=== PATIENT | female | born 1955 | race Caucasian/White ===

== ENCOUNTER 2016-10-06 22:05 | Emergency (ER) | payer BC ==
[~2016-10-06] VITALS: Ht 162.6 cm; Wt 56.2 kg
[2016-10-06 22:39] LABS: BILIRUBIN,URINE NEGATIVE (NEG); GLUCOSE,URINE NEGATIVE (NEG); NITRITE,URINE NEGATIVE (NEG); PROTEIN,URINE 30 mg/dL (NEG-TRACE); UROBILINOGEN,URINE 0.2 mg/dL (0.2 mg/dL)
[2016-10-06] MEDS ORDERED: IV NORMAL SALINE 1000ML BAG 1,000 ML IV ONE (22:45)
[2016-10-06] MEDS ORDERED: fentaNYL PF VIAL 100 MCG/2 ML VIAL IV ONE (22:45)
[2016-10-06] MEDS ORDERED: KETOROLAC TROMETHAMINE 30 MG/ML INJ. IV ONE (22:45)
[2016-10-06] MEDS ORDERED: ONDANSETRON PF 4 MG/2 ML VIAL. IV ONE (22:45)
[2016-10-06 22:48] LABS: BACTERIA,URINE FEW /HPF (0-FEW); SQUAMOUS EPITHELIAL CELL,UR MOD /LPF
--- NOTE | 2016-10-06 22:52 | PHYS DOC ---
Past Medical History Past Medical History: Hypertension Adult General Chief Complaint Chief Complaint: FLANK PAIN HPI HPI Patient is a 60 year old female with history of hypertension who presents today with moderate left flank pain with nausea and vomiting that began this evening. Patient denies any fever but she states she has chills. Patient denies any urgency frequency or dysuria. Denies any history of kidney stones. PCP Dr. Ahn Review of Systems Review of Systems Constitutional: Denies fever or chills [] Eyes: Denies change in visual acuity, redness, or eye pain [] HENT: Denies nasal congestion or sore throat [] Respiratory: Denies cough or shortness of breath [] Cardiovascular: No additional information not addressed in HPI [] GI: Denies abdominal pain, nausea, vomiting, bloody stools or diarrhea [] : Left flank pain Musculoskeletal: Denies back pain or joint pain [] Integument: Denies rash or skin lesions [] Neurologic: Denies headache, focal weakness or sensory changes [] Endocrine: Denies polyuria or polydipsia [] Current Medications Current Medications Current Medications Medications (Trade) Dose Ordered Sig/Clarisa Start Time Stop Time Status Last Admin Dose Admin Ceftriaxone Sodium 50 ml @ 100 mls/hr 1X ONCE 10/06/16 23:15 10/06/16 23:44 DC 10/06/16 23:11 100 MLS/HR Fentanyl Citrate (Fentanyl 2ml Vial) 50 mcg 1X ONCE 10/06/16 22:45 10/06/16 22:46 DC 10/06/16 22:56 50 MCG Ketorolac Tromethamine (Toradol) 30 mg 1X ONCE 10/06/16 22:45 10/06/16 22:46 DC 10/06/16 22:57 30 MG Ondansetron HCl (Zofran) 4 mg 1X ONCE 10/06/16 22:45 10/06/16 22:46 DC 10/06/16 22:56 4 MG Potassium Chloride (Klor-Con) 40 meq 1X ONCE 10/06/16 23:30 10/06/16 23:31 DC 10/06/16 23:34 40 MEQ Sodium Chloride 1,000 ml @ 1,000 mls/hr 1X ONCE 10/06/16 22:45 10/06/16 23:44 DC 10/06/16 22:57 1,000 MLS/HR Tamsulosin HCl (Flomax) 0.4 mg 1X ONCE 10/06/16 23:30 10/06/16 23:31 DC 10/06/16 23:34 0.4 MG Allergies Allergies Allergies Coded Allergies Type Severity Reaction Last Updated Verified Sulfa (Sulfonamide Antibiotics) Allergy Unknown 10/06/16 Yes codeine Allergy Unknown 10/06/16 Yes Physical Exam Physical Exam Constitutional: Well developed, well nourished, no acute distress, non-toxic appearance. [] HENT: Normocephalic, atraumatic, bilateral external ears normal, oropharynx moist, no oral exudates, nose normal. [] Eyes: PERRLA, EOMI, conjunctiva normal, no discharge. [] Neck: Normal range of motion, no tenderness, supple, no stridor. [] Cardiovascular:Heart rate regular rhythm, no murmur [] Lungs & Thorax: Bilateral breath sounds clear to auscultation [] Abdomen: Bowel sounds normal, soft, no tenderness, no masses, no pulsatile masses. [] Skin: Warm, dry, no erythema, no rash. [] Back: No tenderness, mild left CVA tenderness. [] Extremities: No tenderness, no cyanosis, no clubbing, ROM intact, no edema. [] Neurologic: Alert and oriented X 3, normal motor function, normal sensory function, no focal deficits noted. [] Psychologic: Affect normal, judgement normal, mood normal. [] Current Patient Data Vital Signs Vital Signs Date Time Temp Pulse Resp B/P (MAP) Pulse Ox O2 Delivery O2 Flow Rate FiO2 10/06/16 23:48 94 16 193/79 (117) 97 Room Air 10/06/16 22:15 97.5 97.5 Lab Values Laboratory Tests Test 10/06/16 22:15 10/06/16 22:25 Urine Collection Type Unknown Urine Color Yellow Urine Clarity Clear Urine pH 6.0 Urine Specific [place] 1.025 Urine Protein 30 mg/dL (NEG-TRACE) Urine Glucose (UA) Negative mg/dL (NEG) Urine Ketones (Stick) Negative mg/dL (NEG) Urine Blood Moderate (NEG) Urine Nitrite Negative (NEG) Urine Bilirubin Negative (NEG) Urine Urobilinogen Dipstick 0.2 mg/dL (0.2 mg/dL) Urine Leukocyte Esterase Small (NEG) Urine RBC 6-10 /HPF (0-2) Urine WBC 11-20 /HPF (0-4) Urine Squamous Epithelial Cells Mod /LPF Urine Bacteria Few /HPF (0-FEW) Urine Mucus Mod /LPF White Blood Count 15.9 x10^3/uL (4.0-11.0) H Red Blood Count 4.89 x10^6/uL (3.50-5.40) Hemoglobin 14.5 g/dL (12.0-15.5) Hematocrit 43.9 % (36.0-47.0) Mean Corpuscular Volume 90 fL (79-100) Mean Corpuscular Hemoglobin 30 pg (25-35) Mean Corpuscular Hemoglobin Concent 33 g/dL (31-37) Red Cell Distribution Width 14.2 % (11.5-14.5) Platelet Count 184 x10^3/uL (140-400) Neutrophils (%) (Auto) 76 % (31-73) H Lymphocytes (%) (Auto) 18 % (24-48) L Monocytes (%) (Auto) 5 % (0-9) Eosinophils (%) (Auto) 0 % (0-3) Basophils (%) (Auto) 0 % (0-3) Neutrophils # (Auto) 12.1 x10^3uL (1.8-7.7) H Lymphocytes # (Auto) 2.9 x10^3/uL (1.0-4.8) Monocytes # (Auto) 0.8 x10^3/uL (0.0-1.1) Eosinophils # (Auto) 0.1 x10^3/uL (0.0-0.7) Basophils # (Auto) 0.1 x10^3/uL (0.0-0.2) Sodium Level 141 mmol/L (136-145) Potassium Level 3.1 mmol/L (3.5-5.1) L Chloride Level 102 mmol/L (98-107) Carbon Dioxide Level 32 mmol/L (21-32) Anion Gap 7 (6-14) Blood Urea Nitrogen 32 mg/dL (7-20) H Creatinine 1.0 mg/dL (0.6-1.0) Estimated GFR (Cockcroft-Gault) 56.7 BUN/Creatinine Ratio 32 (6-20) H Glucose Level 141 mg/dL (70-99) H Calcium Level 9.1 mg/dL (8.5-10.1) Total Bilirubin 0.4 mg/dL (0.2-1.0) Aspartate Amino Transferase (AST) 22 U/L (15-37) Alanine Aminotransferase (ALT) 28 U/L (14-59) Alkaline Phosphatase 101 U/L (46-116) Total Protein 7.7 g/dL (6.4-8.2) Albumin 4.2 g/dL (3.4-5.0) Albumin/Globulin Ratio 1.2 (1.0-1.7) Lipase 119 U/L (73-393) Laboratory Tests 10/06/16 22:25 Laboratory Tests 10/06/16 22:25 EKG EKG [] Radiology/Procedures Radiology/Procedures []PROCEDURE: CT ABDOMEN PELVIS WO CONTRAST History: Left flank pain. Comparison: None. Technique: CT of the abdomen and pelvis was performed without intravenous or oral contrast. Exposure: One or more of the following individualized dose reduction techniques were utilized for this examination: 1. Automated exposure control 2. Adjustment of the mA and/or kV according to patient size 3. Use of iterative reconstruction technique Findings: Evaluation of solid organs is limited by lack of intravenous contrast. Evaluation of enteric structures may be limited by lack of oral contrast. Images of lower chest demonstrate scattered areas of emphysema. Liver, spleen, and pancreas are unremarkable. There is nodular thickening of both adrenal glands. Aortic atherosclerosis is noted. No bowel obstruction or inflammation is seen. Appendix is without evidence of inflammation. Uterus and adnexa unremarkable CT appearance. No free air or significant free fluid is seen in the abdomen or pelvis. There is severe left hydroureteronephrosis secondary to distal left ureteral stone versus collection of stones measuring 8 mm in aggregate. There is a large amount of left perinephric inflammatory stranding. The interpolar region of the right kidney demonstrates 1 mm nonobstructing nephrolith. Right ureter is free stone or obstruction. Impression: 1. Severe left hydroureteronephrosis secondary to distal left ureteral stone versus collection of ureteral stones measuring 8 mm in aggregate. 2. Nonobstructive right nephrolith. Electronically signed by: Abelino Young MD (10/06/2016 11:14 PM) [facility] DICTATED and SIGNED BY: ABELINO YOUNG MD DATE: 10/06/16 9393 CC: SMITA JOHNSTON APRN; CHELA AHN DO ~ Course & Med Decision Making Course & Med Decision Making Pertinent Labs and Imaging studies reviewed. (See chart for details) This is a 60-year-old female patient presenting to the ED with left flank pain with nausea and vomiting that began today. CBC with a WBC of 15.9 and a left shift, CMP with potassium of 3.1, creatinine is normal. Urine positive for small amount of leukocytes, moderate amount of blood CT of the abdomen and pelvic without contrast was noted for severe left hydronephrosis secondary to distal left ureteral stone versus collecting ureteral stones measuring [address] was also noted for nonobstructing right nephrolith. Patient will be transferred to [facility]. Patient was given potassium 40 mEq in the ED, 1 L of IV fluid, Flomax, and Rocephin. She is also given Toradol and fentanyl. Pain is well controlled. 23:53 Dr. Chu accepted patient at [facility]. They will call us with a bed and we will arrange for transport. Dragon Disclaimer Dragon Disclaimer This electronic medical record was generated, in whole or in part, using a voice recognition dictation system. Departure Departure Impression: Primary Impression: Pyelonephritis Additional Impressions: Kidney stone Hypokalemia Nausea and vomiting Disposition: 05 TRANSFER OTHER Condition: STABLE Referrals: CHELA AHN DO (PCP) Problem Qualifiers Additional Impressions: Nausea and vomiting Vomiting type: unspecified Vomiting Intractability: non-intractable Qualified Codes: R11.2 - Nausea with vomiting, unspecified SMITA JOHNSTON APRN Oct 06, 2016 22:51
[2016-10-06 22:55] LABS: BASO # 0.1 x10^3/uL (0.0-0.2); BASO % 0 % (0-3); EOS % 0 % (0-3); HEMATOCRIT 43.9 % (36.0-47.0); HEMOGLOBIN 14.5 g/dL (12.0-15.5); LYMPH # 2.9 x10^3/uL (1.0-4.8); LYMPH % 18 % (24-48); MEAN CORPUSCULAR HEMOGLOBIN 30 pg (25-35); MEAN CORPUSCULAR HGB CONC 33 g/dL (31-37); MEAN CORPUSCULAR VOLUME 90 fL (79-100); MONO % 5 % (0-9); NEUT % 76 % (31-73); PLATELET COUNT 184 x10^3/uL (140-400); RED BLOOD COUNT 4.89 x10^6/uL (3.50-5.40); RED CELL DISTRIBUTION WIDTH 14.2 % (11.5-14.5); WHITE BLOOD COUNT 15.9 x10^3/uL (4.0-11.0)
[2016-10-06 23:05] LABS: CALCIUM 9.1 mg/dL (8.5-10.1); GFR 56.7; POTASSIUM 3.1 mmol/L (3.5-5.1)
[2016-10-06 23:08] LABS: ALBUMIN 4.2 g/dL (3.4-5.0); ALBUMIN/GLOBULIN RATIO 1.2 (1.0-1.7); TOTAL BILIRUBIN 0.4 mg/dL (0.2-1.0); TOTAL PROTEIN 7.7 g/dL (6.4-8.2)
--- NOTE | 2016-10-06 23:17 | RAD ---
History: Left flank pain. Comparison: None. Technique: CT of the abdomen and pelvis was performed without intravenous or oral contrast. Exposure: One or more of the following individualized dose reduction techniques were utilized for this examination: 1. Automated exposure control 2. Adjustment of the mA and/or kV according to patient size 3. Use of iterative reconstruction technique Findings: Evaluation of solid organs is limited by lack of intravenous contrast. Evaluation of enteric structures may be limited by lack of oral contrast. Images of lower chest demonstrate scattered areas of emphysema. Liver, spleen, and pancreas are unremarkable. There is nodular thickening of both adrenal glands. Aortic atherosclerosis is noted. No bowel obstruction or inflammation is seen. Appendix is without evidence of inflammation. Uterus and adnexa unremarkable CT appearance. No free air or significant free fluid is seen in the abdomen or pelvis. There is severe left hydroureteronephrosis secondary to distal left ureteral stone versus collection of stones measuring 8 mm in aggregate. There is a large amount of left perinephric inflammatory stranding. The interpolar region of the right kidney demonstrates 1 mm nonobstructing nephrolith. Right ureter is free stone or obstruction. Impression: 1. Severe left hydroureteronephrosis secondary to distal left ureteral stone versus collection of ureteral stones measuring 8 mm in aggregate. 2. Nonobstructive right nephrolith. Electronically signed by: Abelino Alfaro MD (10/06/2016 11:14 PM) [facility]
[2016-10-06] MEDS ORDERED: TAMSULOSIN 0.4 MG CAP.ER.24H. PO ONE (23:30)
[2016-10-06] MEDS ORDERED: POTASSIUM CHLORIDE 20 MEQ TABLET.ER. PO ONE (23:30)
[2016-10-07 00:11] VITALS: BP 177/81
== END 2016-10-07 00:53 | disposition short-term general hospital (02) ==
LOC: ER 22:05
DX: N12 Tubulo-interstitial nephritis, not specified as acute or chronic (principal); N20.0 Calculus of kidney; R11.2 Nausea with vomiting, unspecified; E87.6 Hypokalemia; I10 Essential (primary) hypertension; Z88.2 Allergy status to sulfonamides; Z88.5 Allergy status to narcotic agent
CPT/HCPCS: 36415; 74176; 80053; 81001; 83690; 85025; 87086; 96365; 96375; 99285; J0690; J1885; J2405; J3010; J7030